=== PATIENT | female | born 1965 | race Caucasian/White ===

== ENCOUNTER 2019-08-13 22:37 | Emergency (ER) | payer BC ==
[~2019-08-13] VITALS: Ht 172.7 cm; Wt 86.0 kg
--- NOTE | 2019-08-13 22:40 | NUR ---
NO ANSWER WHEN CALLED FOR TRIAGE
[2019-08-13] MEDS ORDERED: LOSA50TA14 PO (22:48)
[2019-08-13] MEDS ORDERED: BUPR-86 PO (22:48)
--- NOTE | 2019-08-13 23:35 | NUR ---
PT CALLED TO ROOM FROM LOBBY
--- NOTE | 2019-08-13 23:56 | NUR ---
THIS IS A 54Y F THAT COMES IN TONIGHT WITH C/O HIGH BLOOD PRESSURE AND VOMITING HER LAST PILL UP TONIGHT BEFORE SHE WAS ABLE TO DIGEST IT. PT TRIED TO GET MED REFILLED AND [facility] STS THEY NEED A NEW PRESCRIPTION. PT APPEARS TO BE ANXIOUS AND JITTERY. PER PT HAD A HEADACHE TODAY AND STROKE SYMPTOMS, PT UNABLE TO ELABORATE MORE AT THIS TIME. PT CONNECTED TO MONITORING, VSS, NADN.
--- NOTE | 2019-08-13 23:56 | NUR ---
PA AT BEDSIDE TO ASSESS PT
[2019-08-14 00:23] VITALS: BP 131/80
[2019-08-14] MEDS ORDERED: KETOROLAC 30 MG/1 ML ONE (00:27)
[2019-08-14] MEDS ORDERED: KETOROLAC 30 MG/1 ML IM ONE (00:30)
--- NOTE | 2019-08-14 00:33 | NUR ---
PT TO CT AT THIS TIME
[2019-08-14 00:49] LABS: BASOPHILS # (AUTO) 0.02 x10^3/uL (0-0.1); BASOPHILS % (AUTO) 0 % (0-1); EOSINOPHILS # (AUTO) 0.14 x10^3/uL (0-0.4); EOSINOPHILS % (AUTO) 3 % (1-7); LYMPHOCYTES # (AUTO) 1.15 x10^3/uL (1-3.4); LYMPHOCYTES % (AUTO) 22 % (22-44); MD NO; MEAN CORPUSCULAR HEMOGLOBIN 30.1 pg (27.0-34.8); MEAN CORPUSCULAR HGB CONC 33.2 g/dL (32.4-35.8); MEAN CORPUSCULAR VOLUME 90.7 fL (80-100); MEAN PLATELET VOLUME 7.7 fL (7.4-10.4); MONOCYTES # (AUTO) 0.52 x10^3/uL (0.2-0.8); MONOCYTES % (AUTO) 10 % (2-9); NEUTROPHILS # (AUTO) 3.37 x10^3/uL (1.8-6.8); NEUTROPHILS % (AUTO) 65 % (42-75); PLATELET COUNT 282 x10^3/uL (130-400); RED BLOOD COUNT 4.56 x10^6/uL (3.82-5.3); RED CELL DISTRIBUTION WIDTH 14.2 % (9.6-15.2)
[2019-08-14 00:59] LABS: ALANINE AMINOTRANSFERASE 31 U/L (12-78); ALBUMIN 3.9 g/dL (3.4-5.0); ANION GAP 5 mmol/L (5-15); CALCIUM 9.9 mg/dL (8.5-10.1); CHLORIDE 105 mmol/L (98-107); CREATININE 0.81 mg/dL (0.55-1.02)
[2019-08-14 01:01] LABS: ALKALINE PHOSPHATASE 97 U/L (45-117); BILIRUBIN,TOTAL 0.7 mg/dL (0.2-1.0); TOTAL PROTEIN 6.8 g/dL (6.4-8.2)
--- NOTE | 2019-08-14 01:33 | NUR ---
ALL RESULTS BACK CHART UP FOR RECHECK
--- NOTE | 2019-08-14 02:15 | NUR ---
Patient/Caregiver given discharge instructions and they have confirmed that they understand the instructions. Patient ambulatory with steady gait.
== END 2019-08-14 02:37 | disposition home or self-care (01) ==
LOC: ED 08-14 02:31
DX: G44.219 Episodic tension-type headache, not intractable (principal); I10 Essential (primary) hypertension
CPT/HCPCS: 36415; 70450; 80053; 85025; 93005; 96372; 99285; J1885